=== PATIENT | male | born 1945 | race Caucasian/White ===

== ENCOUNTER 2017-07-25 14:41 | Emergency (ER) | payer MEDICARE ==
[~2017-07-25] VITALS: Ht 180.3 cm; Wt 120.0 kg
[2017-07-25] MEDS ORDERED: METFORMIN500 M2 PO (15:48)
[2017-07-25] MEDS ORDERED: ZYLOPRIM100 MG PO (15:48)
[2017-07-25] MEDS ORDERED: LEVOTHYROXIN50 MCG PO (15:48)
[2017-07-25] MEDS ORDERED: CELEXA20 M1 PO (15:48)
[2017-07-25] MEDS ORDERED: NOVOLIN 70/30 SC (15:49)
[2017-07-25] MEDS ORDERED: ASPIRIN EC325 MG PO (15:50)
[2017-07-25] MEDS ORDERED: HYDROCO/APAP1 TA9 PO (15:50)
[2017-07-25] MEDS ORDERED: PRAMIPEXOLE0.25 MG PO (15:52)
[2017-07-25 16:00] VITALS: BP 155/71
[2017-07-25] MEDS ORDERED: MIRAPEX0.5 MG PO (16:02)
[2017-07-25] MEDS ORDERED: PERCOCET 5/321 COMBO PO (16:02)
== END 2017-07-25 16:15 | disposition home or self-care (01) ==
LOC: ED 14:41
DX: S43.102A Unspecified dislocation of left acromioclavicular joint, initial encounter (principal); S80.212A Abrasion, left knee, initial encounter; G47.30 Sleep apnea, unspecified; E11.9 Type 2 diabetes mellitus without complications; I10 Essential (primary) hypertension; E78.00 Pure hypercholesterolemia, unspecified; E03.9 Hypothyroidism, unspecified; V28.4XXA Motorcycle driver injured in noncollision transport accident in traffic accident, initial encounter

== ENCOUNTER 2017-08-30 20:04 | Observation (INO) | payer OTHER, MEDICARE ==
[~2017-08-30] VITALS: Ht 180.3 cm; Wt 111.4 kg
[~2017-08-30 20:04] MED LIST: ASPIRIN EC325 MG PO; CELEXA20 M1 PO; HYDROCO/APAP1 TA9 PO; LEVOTHYROXIN50 MCG PO; METFORMIN500 M2 PO; MIRAPEX0.5 MG PO; NOVOLIN 70/30 SC; PERCOCET 5/321 COMBO PO; PRAMIPEXOLE0.25 MG PO; ZYLOPRIM100 MG PO
[2017-08-30 20:48] LABS: HEMATOCRIT 38.3 % (39.0-50.0); HEMOGLOBIN 12.6 g/dl (14.0-18.0); IMMATURE GRANULOCYTES 0.3 % (0.0-1.0); MEAN CELL VOLUME 89.9 fL CALC (80.0-100.0); MEAN CORPUSCULAR HGB 29.6 pG CALC (26.0-32.0); MEAN CORPUSCULAR HGB CONC 32.9 g/L CALC (32.0-36.0); NEUT# 6.86 thou/uL (1.82-7.42); RED BLOOD COUNT 4.26 mill/uL (4.70-6.10); RED CELL DISTRI WIDTH 13.4 % (11.5-15.5)
[2017-08-30 21:03] LABS: ANION GAP 21 (6-22 (CALC)); BUN 15 mg/dL (8-23); BUN/CREATININE RATIO 14 (12-20 (CALC)); CARBON DIOXIDE 21 mmol/l (22-30); CHLORIDE 98 mmol/l (95-108); CREATININE 1.1 mg/dL (0.7-1.3); GFR > 60 ML/MIN (>=60 (CALC)); GFR FOR AFR.AMER. > 60 ML/MIN (>=60 (CALC)); POTASSIUM 4.6 mmol/l (3.5-5.1); SODIUM 135 mmol/l (137-146)
[2017-08-30 23:25] VITALS: BP 166/61
[2017-08-31] VITALS (7 sets, daily range): BP systolic 154–199; BP diastolic 72–85
[2017-08-31] MEDS ORDERED: METOPROL TAR25 MG PO (10:48)
[2017-08-31] MEDS ORDERED: ZESTRIL10 M1 PO (10:52)
[2017-08-31] MEDS ORDERED: FINASTERIDE5 MG PO (10:53)
[2017-08-31] MEDS ORDERED: METFORMIN HCL500 M1 PO (10:54)
== END 2017-08-31 16:35 | disposition short-term general hospital (02) | DRG 310 ==
LOC: ED 20:04 → ED-I 22:27 → ED 22:39 → ICU 22:40
PROVIDERS: ADMIT Internal Medicine; ATTEND Internal Medicine
DX: I44.1 Atrioventricular block, second degree (principal); S00.12XA Contusion of left eyelid and periocular area, initial encounter; E11.65 Type 2 diabetes mellitus with hyperglycemia; I10 Essential (primary) hypertension; G47.30 Sleep apnea, unspecified; E03.9 Hypothyroidism, unspecified; E78.00 Pure hypercholesterolemia, unspecified; I25.10 Atherosclerotic heart disease of native coronary artery without angina pectoris; V43.53XA Car driver injured in collision with pick-up truck in traffic accident, initial encounter; Z95.1 Presence of aortocoronary bypass graft; Z91.14 Patient's other noncompliance with medication regimen

== ENCOUNTER 2018-07-07 19:27 | Emergency (ER) | payer MEDICARE ==
[~2018-07-07] VITALS: Ht 180.3 cm; Wt 98.0 kg
[~2018-07-07 19:27] MED LIST changes: +FINASTERIDE5 MG PO; +METFORMIN HCL500 M1 PO; +METOPROL TAR25 MG PO; +ZESTRIL10 M1 PO
[2018-07-07 21:16] LABS: HEMATOCRIT 40.4 % (39.0-50.0); HEMOGLOBIN 13.7 g/dl (14.0-18.0); IMMATURE GRANULOCYTES 0.2 % (0.0-5.0); MEAN CELL VOLUME 88.2 fL CALC (80.0-100.0); MEAN CORPUSCULAR HGB 29.9 pG CALC (26.0-32.0); MEAN CORPUSCULAR HGB CONC 33.9 g/L CALC (32.0-36.0); NEUT# 4.98 thou/uL (1.82-7.42); RED BLOOD COUNT 4.58 mill/uL (4.70-6.10); RED CELL DISTRI WIDTH 13.2 % (11.5-15.5); URINE BILIRUBIN - DIPSTICK NEGATIVE (NEGATIVE); URINE BLOOD DIPSTICK NEGATIVE (NEGATIVE); URINE COLOR YELLOW; URINE GLUCOSE - DIPSTICK >=1000 mg/dL (NEGATIVE); URINE KETONE TRACE mg/dL (NEGATIVE); URINE LEUK ESTERASE NEGATIVE (NEGATIVE); URINE NITRITE - DIPSTICK NEGATIVE (Negative); URINE PH 5.5 (4.5-8.0); URINE PROTEIN - DIPSTICK NEGATIVE (NEG-TRACE); URINE UROBILINOGEN - DIPSTICK 0.2 E.U./dL (0.2)
[2018-07-07 21:36] LABS: ALBUMIN 4.5 g/dL (3.2-5.0); ALKALINE PHOSPHATASE 102 u/l (38-126); ANION GAP 18 (6-22 (CALC)); BILIRUBIN, TOTAL 0.5 mg/dL (0.0-1.4); BUN 21 mg/dL (8-23); BUN/CREATININE RATIO 18 (12-20 (CALC)); CARBON DIOXIDE 24 mmol/l (22-30); CHLORIDE 98 mmol/l (95-108); CREATININE 1.2 mg/dL (0.7-1.3); GFR 60 ML/MIN (>=60 (CALC)); GFR FOR AFR.AMER. > 60 ML/MIN (>=60 (CALC)); POTASSIUM 4.9 mmol/l (3.5-5.1); SGOT/AST 28 u/l (19-48); SODIUM 136 mmol/l (137-146); TOTAL PROTEIN 7.8 g/dL (6.3-8.2)
[2018-07-07 21:47] LABS: MYOGLOBIN 45 ng/mL (0 - 121)
[2018-07-08 00:12] VITALS: BP 161/70
== END 2018-07-08 00:12 | disposition home or self-care (01) ==
LOC: ED 19:27 → ED-I 21:55 → ED 07-08 00:12
PROVIDERS: Emergency Medicine
DX: E11.65 Type 2 diabetes mellitus with hyperglycemia (principal); Z79.4 Long term (current) use of insulin; R94.31 Abnormal electrocardiogram [ECG] [EKG]

== ENCOUNTER 2019-02-16 14:26 | Observation (INO) | payer MEDICARE ==
[~2019-02-16] VITALS: Ht 180.3 cm; Wt 78.7 kg
[~2019-02-16 14:26] MED LIST changes: -ASPIRIN EC325 MG PO; +EC ASPIRIN325 MG PO
--- NOTE | 2019-02-16 14:38 | NUR ---
OBTAINED EKG WHILE IN TRIAGE. NO ROOMS AVAILABLE IN ER. CHARGE NURSE NOTIFIED. WILL PLACE PT IN ROOM 7 AND DRAW BLOOD AND SOON ROOM COMES AVAILABLE WILL MOVE PT TO A MONITERED ROOM, DR. SMALL GIVEN EKG
--- NOTE | 2019-02-16 15:30 | NUR ---
PATIENT RESTING AWAITNG LAB AND RADIOLOGY RESULTS. PATIENT DENIES ANY CHEST PAIN, SOB OR WEAKNESS AT THIS TIME. PATIENT REFUSING TO REMOVE CLOTHING AND GET INTO GOWN
[2019-02-16 15:32] LABS: HEMATOCRIT 44.2 % (39.0-50.0); HEMOGLOBIN 14.5 g/dl (14.0-18.0); IMMATURE GRANULOCYTES 0.4 % (0.0-5.0); MEAN CELL VOLUME 88.9 fL CALC (80.0-100.0); MEAN CORPUSCULAR HGB 29.2 pG CALC (26.0-32.0); MEAN CORPUSCULAR HGB CONC 32.8 g/L CALC (32.0-36.0); NEUT# 7.73 thou/uL (1.82-7.42); RED BLOOD COUNT 4.97 mill/uL (4.70-6.10); RED CELL DISTRI WIDTH 13.4 % (11.5-15.5)
[2019-02-16 15:47] LABS: ALBUMIN 4.8 g/dL (3.2-5.0); ALKALINE PHOSPHATASE 98 u/l (38-126); ANION GAP 21 (6-22 (CALC)); BILIRUBIN, TOTAL 0.6 mg/dL (0.0-1.4); BUN 21 mg/dL (8-23); BUN/CREATININE RATIO 17 (12-20 (CALC)); CARBON DIOXIDE 22 mmol/l (22-30); CHLORIDE 101 mmol/l (95-108); CREATININE 1.2 mg/dL (0.7-1.3); GFR 60 ML/MIN (>=60 (CALC)); GFR FOR AFR.AMER. > 60 ML/MIN (>=60 (CALC)); SGOT/AST 32 u/l (19-48); SODIUM 138 mmol/l (137-146)
--- NOTE | 2019-02-16 16:30 | NUR ---
PATIENT RESTING AWAITING LAB AND RADIOLOGY RESULTS. PATIENT DENIES ANY PAIN OR DISCOMFORT AT THIS TIME. PATIENT SITTING ON SIDE OF BED STATING MORE COMFORTABLE THAN LAYING DOWN
--- NOTE | 2019-02-16 17:30 | NUR ---
PATIENT RESTING AWAITING ROOM ASSIGNMNET PATIENT SITTING ON SIDE OF BED. PATIENT DENIES ANY PAIN, SOB OR WEAKNESS AT THIS TIME
--- NOTE | 2019-02-16 18:25 | NUR ---
FOOD TRAY DELIVERED AND PATIENT CONSUMING MEAL
--- NOTE | 2019-02-16 18:41 | NUR ---
REPORT CALLED TO LARRY CLARKE
--- NOTE | 2019-02-16 18:49 | NUR ---
PATIENT TRANSPORTED TO [facility]
[2019-02-16 19:00] VITALS: BP 133/59
--- NOTE | 2019-02-16 19:53 | NUR ---
PT ARRIVED TO UNIT VIA STRETCHER WITH ER STAFF; ALERT AND ORIENTED X3; TALKATIVE. AMBULATED TO BED INDEPENDENLTY WITH STEADY GAIT. DENIES PAIN; REPORTS A HEAVINESS IN HIS CHEST WITH ASSOCIATED OCCASIONAL SOB. RESPIRATIONS EVEN AND UNLABORED AT THIS TIME ON ROOM AIR; WEARS A CPAP AT BEDTIME. PLAN OF CARE DISCUSSED. PT ENCOURAGED TO VERBALIZE CONCERNS. STATES UNDERSTANDING. SAFETY MEASURES IN PLACE. CALL LIGHT WITHIN REACH.
--- NOTE | 2019-02-16 20:06 | NUR ---
ASSESSMENT COMPLETED; HR IRREGULAR. PT HAD PACEMAKER PLACED IN NOVEMBER. TONY CURTIS APPLIED TO BLE. VSS.
--- NOTE | 2019-02-16 22:22 | NUR ---
HS INSULIN GIVEN; PT PREFERS TO INJECT HIMSELF; NEEDS DISPOSED OF IN SHARPS CONTAINER. HS SNACK PROVIDED.
[2019-02-16 23:32] VITALS: BP 137/88
--- NOTE | 2019-02-16 23:36 | NUR ---
PT TRANSPORTED TO [facility] VIS WHEELCHAIR WITH ICU STAFF FOR SHOWER. PT NOW BACK IN BED ALL ATTACHMENTS RECONNECTED. VSS. PT REMAINS VERY TALKATIVE AND PLAYING GAMES ON HIS CELL PHONE. PT STATES THAT HE IS STILL HUNGRY; STEVEN PEPE PROVIDED. 3 UNIT GIVEN FOR GLUCOSE OF 272. PACED ON TELEMETRY WITH OCCATISIONAL PVCS.
[2019-02-17 04:31] VITALS: BP 140/64
--- NOTE | 2019-02-17 04:34 | NUR ---
PT ASLEEP ON LEFT SIDE WITH NO SIGNS OF DISTRESS; AWAKENS TO VERBAL STIMULI. DENIES CHEST PAIN, BUT DOES C/O SOME MILD SOB; GOOD OXYGEN SATURATION ON ROOM AIR. VOIDING CLEAR YELLOW URINE IN URINAL. SAFETY MEASURES IN PLACE. CALL LIGHT WITHIN REACH.
--- NOTE | 2019-02-17 04:52 | NUR ---
PT EXPERIENCED A RUN OF VTACH FOR APPROXIMATELY 20 SECONDS; PT RESTING ON RIGHT SIDE AND ASYMPTOMATIC BUT FOR THE SAME C/O OF MILD HEAVINESS IN CHEST AND MILD SOB. CURRENTLY IN TRIGEMINY WITH BUNDLE BRANCH BLOCK.
[2019-02-17 06:28] LABS: CHOLESTEROL HDL RATIO 4.8 (<4.4 (CALC))
--- NOTE | 2019-02-17 07:20 | NUR ---
PT RESTING IN BED AWAKE AND WATCHING TV. PT IS ALERT AND ORIENTED X 3. SHIFT ASSESSMENT COMPLETED AT THIS TIME. IV PATENT X1. CALL LIGHT IN REACH. [facility]
--- NOTE | 2019-02-17 07:30 | NUR ---
PT SET UP FOR AM MEAL
--- NOTE | 2019-02-17 08:50 | NUR ---
DR BLANTON AT BEDSIDE AT THIS TIME
[2019-02-17 10:35] VITALS: BP 118/78
--- NOTE | 2019-02-17 11:30 | NUR ---
PT SET UP FOR NOON MEAL AT THIS TIME.
[2019-02-17] MEDS ORDERED: PRAVACHOL40 MG PO (11:50)
--- NOTE | 2019-02-17 11:50 | NUR ---
ANTONIO GREENE AT BEDSIDE AT THIS TIME
[2019-02-17] MEDS ORDERED: OXYBUTYNIN CHLO10 MG PO (11:51)
[2019-02-17] MEDS ORDERED: PRAMIPEXOLE D0.25 MG PO (11:53)
[2019-02-17 12:00] VITALS: BP 151/71
--- NOTE | 2019-02-17 12:30 | NUR ---
PT RESTING IN BED WATCHING TV. RESP ARE EVEN AND UNLABORED. NO DISTRESS NOTED. CALL LIGHT IN REACH. WILL CONTINEU TO MONITOR.
[2019-02-17] MEDS ORDERED: LEVOTHYROXIN75 MC1 PO (13:39)
[2019-02-17] MEDS ORDERED: ISOSORB MONO30 MG PO (13:39)
--- NOTE | 2019-02-17 14:20 | NUR ---
PACEMAKER INTERROGATED AT THIS TIME
--- NOTE | 2019-02-17 15:54 | NUR ---
IV site discontinued, cath intact. No edema , no redness, voices no discomfort.
--- NOTE | 2019-02-17 16:00 | NUR ---
DISCHARGE INSTRUCTIONS REVIEWED WITH PATIENT. PATIENT VERBLAIZED UNDERSTANDING.
--- NOTE | 2019-02-17 16:10 | NUR ---
Discharge instructions given. Patient verbalizes understanding of same. Discharged in stable condition via Wheelchair to Home with staff. All belongings sent with pt.
== END 2019-02-17 16:10 | disposition home or self-care (01) ==
LOC: ED 14:26 → ED-I 16:21 → ED 16:55 → ED-I 16:55 → ED 17:07 → ICU 17:08
PROVIDERS: Family Medicine; ADMIT Internal Medicine; ATTEND Internal Medicine
DX: I25.119 Atherosclerotic heart disease of native coronary artery with unspecified angina pectoris (principal); R00.8 Other abnormalities of heart beat; I10 Essential (primary) hypertension; E03.9 Hypothyroidism, unspecified; G47.33 Obstructive sleep apnea (adult) (pediatric); E11.40 Type 2 diabetes mellitus with diabetic neuropathy, unspecified; E78.5 Hyperlipidemia, unspecified; Z87.891 Personal history of nicotine dependence; Z95.1 Presence of aortocoronary bypass graft; Z95.0 Presence of cardiac pacemaker; Z79.4 Long term (current) use of insulin

== ENCOUNTER 2019-07-11 | Emergency (ER) | payer MEDICARE ==
[~2019-07-11] MED LIST changes: +ISOSORB MONO30 MG PO; +LEVOTHYROXIN75 MC1 PO; +OXYBUTYNIN CHLO10 MG PO; +PRAMIPEXOLE D0.25 MG PO; +PRAVACHOL40 MG PO
[2019-07-11] MEDS ORDERED: CYCLOBENZAPR5 MG PO ×2 (10:54→11:26)
== END 2019-07-11 11:31 | disposition home or self-care (01) ==
DX: S39.012A Strain of muscle, fascia and tendon of lower back, initial encounter (principal); I10 Essential (primary) hypertension; E11.9 Type 2 diabetes mellitus without complications; E03.9 Hypothyroidism, unspecified; Z95.1 Presence of aortocoronary bypass graft; Z95.0 Presence of cardiac pacemaker; Z79.4 Long term (current) use of insulin; M54.5 Low back pain; M79.605 Pain in left leg; X58.XXXA Exposure to other specified factors, initial encounter

== ENCOUNTER 2019-07-11 18:46 | Emergency (ER) | payer MEDICARE ==
[~2019-07-11 18:46] MED LIST changes: +CYCLOBENZAPR5 MG PO
[2019-07-11 20:18] VITALS: BP 191/80
== END 2019-07-11 20:17 | disposition home or self-care (01) ==
LOC: ED 18:46
DX: M54.5 Low back pain (principal); M79.605 Pain in left leg; I10 Essential (primary) hypertension; E11.9 Type 2 diabetes mellitus without complications; E03.9 Hypothyroidism, unspecified; Z95.1 Presence of aortocoronary bypass graft; Z95.0 Presence of cardiac pacemaker; Z79.4 Long term (current) use of insulin

== ENCOUNTER 2019-08-07 | Emergency (ER) | payer MEDICARE ==
[2019-08-07 15:49] LABS: HEMOGLOBIN 13.5 g/dl (14.0-18.0); IMMATURE GRANULOCYTES 0.3 % (0.0-5.0); MEAN CELL VOLUME 89.6 fL CALC (80.0-100.0); MEAN CORPUSCULAR HGB 28.8 pG CALC (26.0-32.0); MEAN CORPUSCULAR HGB CONC 32.1 g/dL CAL (32.0-36.0); NEUT# 6.15 thou/uL (1.82-7.42); RED BLOOD COUNT 4.69 mill/uL (4.70-6.10); RED CELL DISTRI WIDTH 13.6 % (11.5-15.5)
[2019-08-07 16:16] LABS: ALBUMIN 4.1 g/dL (3.2-5.0); ALKALINE PHOSPHATASE 85 u/l (38-126); ANION GAP 13 (6-22 (CALC)); BILIRUBIN, TOTAL 0.5 mg/dL (0.0-1.4); BUN 19 mg/dL (8-23); BUN/CREATININE RATIO 19 (12-20 (CALC)); CHLORIDE 103 mmol/l (95-108); GFR > 60 ML/MIN (>=60 (CALC)); GFR FOR AFR.AMER. > 60 ML/MIN (>=60 (CALC)); POTASSIUM 4.2 mmol/l (3.5-5.1); SGOT/AST 19 u/l (19-48); SODIUM 139 mmol/l (137-146); TOTAL PROTEIN 7.1 g/dL (6.3-8.2)
[2019-08-07 16:18] LABS: CARBON DIOXIDE 27 mmol/l (22-30)
[2019-08-07 16:28] LABS: MYOGLOBIN 163 ng/mL (0 - 121)
[2019-08-07 17:55] LABS: URINE BILIRUBIN - DIPSTICK NEGATIVE (NEGATIVE); URINE BLOOD DIPSTICK NEGATIVE (NEGATIVE); URINE COLOR YELLOW; URINE GLUCOSE - DIPSTICK >=1000 mg/dL (NEGATIVE); URINE KETONE 15 mg/dL (NEGATIVE); URINE LEUK ESTERASE NEGATIVE (NEGATIVE); URINE NITRITE - DIPSTICK NEGATIVE (Negative); URINE PH 5.5 (4.5-8.0); URINE PROTEIN - DIPSTICK NEGATIVE (NEG-TRACE)
[2019-08-07 18:01] LABS: BARBITURATES NEGATIVE (NEGATIVE); COCAINE NEGATIVE (NEGATIVE); METHADONE NEGATIVE (NEGATIVE); OXCYCODONE NEGATIVE (NEGATIVE); TETRAHYDROCANNABIONOL NEGATIVE (NEGATIVE); TRICYLIC ANTIDEPRESSANTS NEGATIVE (NEGATIVE)
[2019-08-07] MEDS ORDERED: FLEXERIL PO (18:19)
[2019-08-07] MEDS ORDERED: ULTRAM50 M1 PO (18:19)
== END 2019-08-07 19:28 | disposition home or self-care (01) ==
PROVIDERS: Emergency Medicine
DX: S73.102A Unspecified sprain of left hip, initial encounter (principal); M47.816 Spondylosis without myelopathy or radiculopathy, lumbar region; E11.40 Type 2 diabetes mellitus with diabetic neuropathy, unspecified; I10 Essential (primary) hypertension; E03.9 Hypothyroidism, unspecified; X58.XXXA Exposure to other specified factors, initial encounter; Z79.84 Long term (current) use of oral hypoglycemic drugs; Z95.1 Presence of aortocoronary bypass graft; Z95.0 Presence of cardiac pacemaker

== ENCOUNTER 2021-07-30 14:34 | Emergency (ER) | payer MEDICARE ==
[2021-07-30] VITALS (8 sets, daily range): BP systolic 148–179; BP diastolic 64–99
[~2021-07-30] VITALS: Ht 180.3 cm; Wt 90.9 kg
[~2021-07-30 14:34] MED LIST changes: +FLEXERIL PO; +ULTRAM50 M1 PO
[2021-07-30] MEDS ORDERED: TAMSULOSIN0.4 MG PO (16:44)
[2021-07-30] MEDS ORDERED: MULTI VIT PO (16:44)
[2021-07-30] MEDS ORDERED: LEVOTHYROXIN50 MCG PO (16:46)
[2021-07-30] MEDS ORDERED: CYMBALTA60 MG PO (16:46)
[2021-07-30] MEDS ORDERED: CIALIS20 MG PO (16:46)
[2021-07-30] MEDS ORDERED: ISOSORB MONO30 MG PO (16:47)
[2021-07-30] MEDS ORDERED: TORADOL PO (20:10)
== END 2021-07-30 20:15 | disposition home or self-care (01) ==
LOC: ED 14:34
DX: M47.816 Spondylosis without myelopathy or radiculopathy, lumbar region (principal); M25.551 Pain in right hip; I10 Essential (primary) hypertension; E11.9 Type 2 diabetes mellitus without complications; E78.00 Pure hypercholesterolemia, unspecified; E03.9 Hypothyroidism, unspecified; G47.30 Sleep apnea, unspecified; Z95.0 Presence of cardiac pacemaker; Z95.1 Presence of aortocoronary bypass graft; Z79.84 Long term (current) use of oral hypoglycemic drugs; Z79.4 Long term (current) use of insulin

== ENCOUNTER 2022-02-09 13:44 | Emergency (ER) | payer MEDICARE ==
[~2022-02-09] VITALS: Ht 180.3 cm; Wt 100.0 kg
[2022-02-09] VITALS (9 sets, daily range): BP systolic 134–178; BP diastolic 64–92
[~2022-02-09 13:44] MED LIST changes: +CIALIS20 MG PO; +CYMBALTA60 MG PO; +MULTI VIT PO; +TAMSULOSIN0.4 MG PO; +TORADOL PO
[2022-02-09 14:15] LABS: HEMATOCRIT 38.2 % (39.0-50.0); HEMOGLOBIN 12.6 g/dl (14.0-18.0); IMMATURE GRANULOCYTES 0.2 % (0.0-5.0); MEAN CELL VOLUME 89.7 fL CALC (80.0-100.0); MEAN CORPUSCULAR HGB 29.6 pG CALC (26.0-32.0); NEUT# 7.45 thou/uL (1.82-7.42); RED BLOOD COUNT 4.26 mill/uL (4.70-6.10); RED CELL DISTRI WIDTH 12.9 % (11.5-15.5)
[2022-02-09 14:35] LABS: ALKALINE PHOSPHATASE 91 u/l (38-126); ANION GAP 18 (6-22 (CALC)); BILIRUBIN, TOTAL 0.4 mg/dL (0.0-1.4); BUN 18 mg/dL (8-23); BUN/CREATININE RATIO 19 (12-20 (CALC)); CHLORIDE 102 mmol/l (95-108); CREATININE 0.9 mg/dL (0.7-1.3); GFR FOR AFR.AMER. > 60 ML/MIN (>=60 (CALC)); GFR OTHER RACES > 60 ML/MIN (>=60 (CALC)); POTASSIUM 4.7 mmol/l (3.5-5.1); SGOT/AST 22 u/l (19-48); SODIUM 136 mmol/l (137-146); TOTAL PROTEIN 7.3 g/dL (6.3-8.2)
[2022-02-09 14:36] LABS: CARBON DIOXIDE 21 mmol/l (22-30)
== END 2022-02-09 16:14 | disposition left against medical advice (07) ==
LOC: ED 13:44
PROVIDERS: Family Medicine
DX: R07.9 Chest pain, unspecified (principal); E11.9 Type 2 diabetes mellitus without complications; I10 Essential (primary) hypertension; E03.9 Hypothyroidism, unspecified; E78.00 Pure hypercholesterolemia, unspecified; Z95.1 Presence of aortocoronary bypass graft; Z95.0 Presence of cardiac pacemaker; Z79.84 Long term (current) use of oral hypoglycemic drugs; Z53.29 Procedure and treatment not carried out because of patient's decision for other reasons

== ENCOUNTER 2022-08-28 13:38 | Observation (INO) | payer MEDICARE ==
[2022-08-28] VITALS (28 sets, daily range): BP systolic 76–199; BP diastolic 44–97
[~2022-08-28] VITALS: Ht 180.3 cm; Wt 99.0 kg
[2022-08-28 14:17] LABS: BASO% 0.6 % (0-3); HEMOGLOBIN 14.2 g/dl (14.0-18.0); IMMATURE GRANULOCYTES 0.4 % (0.0-5.0); LYMPH% 13.6 % (15-41); MEAN CELL VOLUME 92.3 fL CALC (80.0-100.0); MEAN CORPUSCULAR HGB 28.7 pG CALC (26.0-32.0); MEAN CORPUSCULAR HGB CONC 31.1 g/dL CAL (32.0-36.0); MONO% 5.4 % (2-13); NEUT# 8.26 thou/uL (1.82-7.42); RED BLOOD COUNT 4.94 mill/uL (4.70-6.10); RED CELL DISTRI WIDTH 13.9 % (11.5-15.5)
[2022-08-28 14:18] LABS: HEMATOCRIT 45.6 % (39.0-50.0)
[2022-08-28 14:35] LABS: PROTHROMBIN TIME 10.4 SECONDS (9.0-12.5)
[2022-08-28 14:37] LABS: ALBUMIN 4.4 g/dL (3.2-5.0); ALKALINE PHOSPHATASE 111 u/l (38-126); ANION GAP 19 (6-22 (CALC)); BILIRUBIN, TOTAL 0.5 mg/dL (0.2-1.3); BUN 19 mg/dL (8-23); BUN/CREATININE RATIO 18 (12-20 (CALC)); CARBON DIOXIDE 23 mmol/l (22-30); CHLORIDE 98 mmol/l (95-108); CREATININE 1.1 mg/dL (0.7-1.3); GFR FOR AFR.AMER. > 60 ML/MIN (>=60 (CALC)); GFR OTHER RACES > 60 ML/MIN (>=60 (CALC)); SGOT/AST 29 u/l (19-48); SODIUM 134 mmol/l (137-146)
[2022-08-29 00:29] VITALS: BP 99/63
[2022-08-29 04:03] VITALS: BP 147/72
[2022-08-29 06:37] LABS: BASO% 0.6 % (0-3); EOS% 6.2 % (0-8); HEMATOCRIT 43.4 % (39.0-50.0); HEMOGLOBIN 13.5 g/dl (14.0-18.0); IMMATURE GRANULOCYTES 0.5 % (0.0-5.0); LYMPH% 30.1 % (15-41); MEAN CELL VOLUME 92.7 fL CALC (80.0-100.0); MEAN CORPUSCULAR HGB 28.8 pG CALC (26.0-32.0); MEAN CORPUSCULAR HGB CONC 31.1 g/dL CAL (32.0-36.0); MONO% 7.1 % (2-13); NEUT# 4.7 thou/uL (1.82-7.42); NEUT% 55.5 % (42-76); RED BLOOD COUNT 4.68 mill/uL (4.70-6.10); RED CELL DISTRI WIDTH 13.8 % (11.5-15.5)
[2022-08-29 06:49] LABS: ALBUMIN 4.3 g/dL (3.2-5.0); ALKALINE PHOSPHATASE 89 u/l (38-126); ANION GAP 16 (6-22 (CALC)); BILIRUBIN, TOTAL 0.3 mg/dL (0.2-1.3); BUN 24 mg/dL (8-23); BUN/CREATININE RATIO 21 (12-20 (CALC)); CARBON DIOXIDE 27 mmol/l (22-30); CHLORIDE 101 mmol/l (95-108); CREATININE 1.1 mg/dL (0.7-1.3); GFR FOR AFR.AMER. > 60 ML/MIN (>=60 (CALC)); GFR OTHER RACES > 60 ML/MIN (>=60 (CALC)); SGOT/AST 23 u/l (19-48); SODIUM 140 mmol/l (137-146); TOTAL PROTEIN 7.7 g/dL (6.3-8.2)
[2022-08-29 06:51] LABS: POTASSIUM 3.7 mmol/l (3.5-5.1)
[2022-08-29 06:57] VITALS: BP 137/56
[2022-08-29 10:32] VITALS: BP 116/49
[2022-08-29 15:42] VITALS: BP 106/52
[2022-08-29 18:57] VITALS: BP 112/66
[2022-08-30 05:02] VITALS: BP 127/72
[2022-08-30 05:51] LABS: HEMATOCRIT 44.1 % (39.0-50.0); HEMOGLOBIN 14.2 g/dl (14.0-18.0); MEAN CELL VOLUME 90.4 fL CALC (80.0-100.0); MEAN CORPUSCULAR HGB 29.1 pG CALC (26.0-32.0); MEAN CORPUSCULAR HGB CONC 32.2 g/dL CAL (32.0-36.0); RED BLOOD COUNT 4.88 mill/uL (4.70-6.10); RED CELL DISTRI WIDTH 13.7 % (11.5-15.5)
[2022-08-30 06:21] LABS: ALBUMIN 4.2 g/dL (3.2-5.0); ALKALINE PHOSPHATASE 97 u/l (38-126); ANION GAP 12 (6-22 (CALC)); BILIRUBIN, TOTAL 0.3 mg/dL (0.2-1.3); BUN 25 mg/dL (8-23); BUN/CREATININE RATIO 24 (12-20 (CALC)); CARBON DIOXIDE 26 mmol/l (22-30); CHLORIDE 101 mmol/l (95-108); GFR FOR AFR.AMER. > 60 ML/MIN (>=60 (CALC)); GFR OTHER RACES > 60 ML/MIN (>=60 (CALC)); MAGNESIUM 1.8 mg/dL (1.6-2.3); POTASSIUM 4.1 mmol/l (3.5-5.1); SGOT/AST 30 u/l (19-48); SODIUM 135 mmol/l (137-146); TOTAL PROTEIN 7.7 g/dL (6.3-8.2)
[2022-08-30 07:44] VITALS: BP 124/68
[2022-08-30 08:08] VITALS: BP 124/68
[2022-08-30] MEDS ORDERED: LOPID600 MG PO (09:23)
[2022-08-30] MEDS ORDERED: VIBRAMYCIN100 M2 PO (10:15)
[2022-08-30] MEDS ORDERED: LASIX 20 MG TAB20 MG PO (10:15)
== END 2022-08-30 13:22 ==
LOC: ED 13:38 → MS2 19:24
PROVIDERS: Family Medicine; Internal Medicine; ADMIT Internal Medicine; ATTEND Internal Medicine
DX: R06.02 Shortness of breath (principal); R05.9 Cough, unspecified; R53.83 Other fatigue; I10 Essential (primary) hypertension; E11.40 Type 2 diabetes mellitus with diabetic neuropathy, unspecified; I25.10 Atherosclerotic heart disease of native coronary artery without angina pectoris; J44.9 Chronic obstructive pulmonary disease, unspecified; E78.00 Pure hypercholesterolemia, unspecified; E03.9 Hypothyroidism, unspecified; G47.30 Sleep apnea, unspecified; N40.0 Benign prostatic hyperplasia without lower urinary tract symptoms; Z95.1 Presence of aortocoronary bypass graft; Z95.0 Presence of cardiac pacemaker; Z79.84 Long term (current) use of oral hypoglycemic drugs; Z79.4 Long term (current) use of insulin; Z87.891 Personal history of nicotine dependence; Z91.14 Patient's other noncompliance with medication regimen

== ENCOUNTER 2022-10-20 16:31 | Emergency (ER) | payer MEDICARE ==
[~2022-10-20] VITALS: Ht 180.3 cm; Wt 109.8 kg
[2022-10-20] VITALS (10 sets, daily range): BP systolic 131–151; BP diastolic 61–80
[~2022-10-20 16:31] MED LIST changes: +LASIX 20 MG TAB20 MG PO; +LOPID600 MG PO; +VIBRAMYCIN100 M2 PO
[2022-10-20] MEDS ORDERED: GABAPENTIN300 M2 (17:18)
[2022-10-20] MEDS ORDERED: ASPIRINCHW 81MG PO (17:19)
[2022-10-20] MEDS ORDERED: METFORMIN500 M2 PO (17:19)
[2022-10-20] MEDS ORDERED: JARDIANCE10 MG (17:20)
[2022-10-20] MEDS ORDERED: DOXYCYCLINE HY100 MG PO (17:20)
[2022-10-20 17:29] LABS: BASO% 0.4 % (0-3); EOS% 10.6 % (0-8); HEMOGLOBIN 12.5 g/dl (14.0-18.0); IMMATURE GRANULOCYTES 0.5 % (0.0-5.0); LYMPH% 20.1 % (15-41); MEAN CORPUSCULAR HGB 29.1 pG CALC (26.0-32.0); MEAN CORPUSCULAR HGB CONC 31.3 g/dL CAL (32.0-36.0); NEUT# 5.97 thou/uL (1.82-7.42); NEUT% 62.4 % (42-76); RED BLOOD COUNT 4.3 mill/uL (4.70-6.10); RED CELL DISTRI WIDTH 14.2 % (11.5-15.5)
[2022-10-20 17:50] LABS: ALBUMIN 4.1 g/dL (3.2-5.0); ALKALINE PHOSPHATASE 86 u/l (38-126); ANION GAP 15 (6-22 (CALC)); BILIRUBIN, TOTAL 0.3 mg/dL (0.2-1.3); BUN 25 mg/dL (8-23); BUN/CREATININE RATIO 18 (12-20 (CALC)); CARBON DIOXIDE 25 mmol/l (22-30); CHLORIDE 103 mmol/l (95-108); CREATININE 1.4 mg/dL (0.7-1.3); GFR FOR AFR.AMER. 60 ML/MIN (>=60 (CALC)); GFR OTHER RACES 49 ML/MIN (>=60 (CALC)); POTASSIUM 4.6 mmol/l (3.5-5.1); SGOT/AST 26 u/l (19-48); SODIUM 139 mmol/l (137-146); TOTAL PROTEIN 7.6 g/dL (6.3-8.2)
[2022-10-20] MEDS ORDERED: LASIX20 MG PO (20:02)
[2022-10-20] MEDS ORDERED: VIBRAMYCIN100 M2 PO (20:02)
== END 2022-10-20 21:05 | disposition home or self-care (01) ==
LOC: ED 16:31
PROVIDERS: Family Medicine
DX: J18.9 Pneumonia, unspecified organism (principal); I10 Essential (primary) hypertension; E11.9 Type 2 diabetes mellitus without complications; E78.00 Pure hypercholesterolemia, unspecified; E03.9 Hypothyroidism, unspecified; Z95.1 Presence of aortocoronary bypass graft; Z95.0 Presence of cardiac pacemaker; Z79.84 Long term (current) use of oral hypoglycemic drugs; Z20.822 Contact with and (suspected) exposure to COVID-19; R06.02 Shortness of breath

== ENCOUNTER 2022-12-11 21:14 | Observation (INO) | payer MEDICARE ==
[~2022-12-11] VITALS: Ht 180.3 cm; Wt 112.8 kg
[~2022-12-11 21:14] MED LIST changes: +ASPIRINCHW 81MG PO; +DOXYCYCLINE HY100 MG PO; +GABAPENTIN300 M2; +JARDIANCE10 MG; +LASIX20 MG PO
[2022-12-11] MEDS ORDERED: GABAPENTIN300 M2 PO (22:14)
[2022-12-11] MEDS ORDERED: FENOFIBRATE160 MG PO (22:15)
[2022-12-11] MEDS ORDERED: SUPHEDRIN PO (22:19)
[2022-12-11] MEDS ORDERED: VITAMIN B-121000 MCG PO (22:20)
[2022-12-11] MEDS ORDERED: [UNRECOGNIZED DRUG - OTHER] (22:21)
[2022-12-11] MEDS ORDERED: TOUJEO MAX300 UNIT/M SC (22:22)
[2022-12-11] MEDS ORDERED: INSULIN LI100 UNIT/1 SC (22:24)
[2022-12-11] MEDS ORDERED: NOVOLIN 70/30 SC (22:25)
[2022-12-11 22:31] VITALS: BP 162/80
[2022-12-11 22:54] LABS: BASO% 0.8 % (0-3); HEMATOCRIT 42.1 % (39.0-50.0); HEMOGLOBIN 13.1 g/dl (14.0-18.0); IMMATURE GRANULOCYTES 0.4 % (0.0-5.0); LYMPH% 18.1 % (15-41); MEAN CELL VOLUME 90.3 fL CALC (80.0-100.0); MEAN CORPUSCULAR HGB 28.1 pG CALC (26.0-32.0); MEAN CORPUSCULAR HGB CONC 31.1 g/dL CAL (32.0-36.0); MONO% 4.9 % (2-13); NEUT# 6.21 thou/uL (1.82-7.42); NEUT% 67.8 % (42-76); RED BLOOD COUNT 4.66 mill/uL (4.70-6.10); RED CELL DISTRI WIDTH 14.8 % (11.5-15.5)
[2022-12-11 23:00] VITALS: BP 144/79
[2022-12-11 23:07] LABS: ALBUMIN 4.1 g/dL (3.2-5.0); CREATININE 1.7 mg/dL (0.7-1.3); POTASSIUM 4.4 mmol/l (3.5-5.1); TOTAL PROTEIN 7.9 g/dL (6.3-8.2)
[2022-12-11 23:08] LABS: BILIRUBIN, TOTAL 0.7 mg/dL (0.2-1.3)
[2022-12-11 23:09] LABS: INTERNATIONAL NORMALIZED RATIO 1.1 RATIO (0.7-1.3); PROTHROMBIN TIME 10.9 SECONDS (9.0-12.5)
[2022-12-11 23:30] VITALS: BP 149/78
[2022-12-12] VITALS (11 sets, daily range): BP systolic 116–147; BP diastolic 63–86
[2022-12-12 08:43] LABS: BASO% 0.5 % (0-3); EOS% 11.6 % (0-8); HEMATOCRIT 42.7 % (39.0-50.0); HEMOGLOBIN 13.2 g/dl (14.0-18.0); IMMATURE GRANULOCYTES 0.2 % (0.0-5.0); LYMPH% 24.9 % (15-41); MEAN CELL VOLUME 90.5 fL CALC (80.0-100.0); MEAN CORPUSCULAR HGB CONC 30.9 g/dL CAL (32.0-36.0); MONO% 6.3 % (2-13); NEUT# 4.8 thou/uL (1.82-7.42); NEUT% 56.5 % (42-76); RED BLOOD COUNT 4.72 mill/uL (4.70-6.10); RED CELL DISTRI WIDTH 14.9 % (11.5-15.5)
[2022-12-12 08:53] LABS: ALBUMIN 3.9 g/dL (3.2-5.0); BILIRUBIN, TOTAL 0.5 mg/dL (0.2-1.3); CREATININE 1.7 mg/dL (0.7-1.3); POTASSIUM 4.4 mmol/l (3.5-5.1); TOTAL PROTEIN 7.5 g/dL (6.3-8.2)
[2022-12-13] VITALS (7 sets, daily range): BP systolic 105–140; BP diastolic 64–83
[2022-12-13 05:45] LABS: CHOLESTEROL HDL RATIO 4.5 (<4.4 (CALC)); CREATININE 1.8 mg/dL (0.7-1.3); MAGNESIUM 2.2 mg/dL (1.6-2.3); POTASSIUM 4.7 mmol/l (3.5-5.1)
[2022-12-13 05:50] LABS: HEMATOCRIT 44.1 % (39.0-50.0); HEMOGLOBIN 13.9 g/dl (14.0-18.0); MEAN CELL VOLUME 90.4 fL CALC (80.0-100.0); MEAN CORPUSCULAR HGB 28.5 pG CALC (26.0-32.0); MEAN CORPUSCULAR HGB CONC 31.5 g/dL CAL (32.0-36.0); RED BLOOD COUNT 4.88 mill/uL (4.70-6.10); RED CELL DISTRI WIDTH 14.5 % (11.5-15.5)
[2022-12-14] VITALS (11 sets, daily range): BP systolic 103–124; BP diastolic 57–77
[2022-12-14 05:14] LABS: BASO% 0.6 % (0-3); EOS% 9.9 % (0-8); HEMATOCRIT 45.2 % (39.0-50.0); HEMOGLOBIN 14.4 g/dl (14.0-18.0); IMMATURE GRANULOCYTES 0.2 % (0.0-5.0); LYMPH% 21.3 % (15-41); MEAN CORPUSCULAR HGB 28.7 pG CALC (26.0-32.0); MEAN CORPUSCULAR HGB CONC 31.9 g/dL CAL (32.0-36.0); MONO% 5.3 % (2-13); NEUT# 6.21 thou/uL (1.82-7.42); NEUT% 62.7 % (42-76); RED BLOOD COUNT 5.02 mill/uL (4.70-6.10); RED CELL DISTRI WIDTH 14.4 % (11.5-15.5)
[2022-12-14 05:25] LABS: ALBUMIN 4.4 g/dL (3.2-5.0); CREATININE 1.7 mg/dL (0.7-1.3); MAGNESIUM 2.3 mg/dL (1.6-2.3); POTASSIUM 4.6 mmol/l (3.5-5.1); TOTAL PROTEIN 8.3 g/dL (6.3-8.2)
[2022-12-14 05:27] LABS: BILIRUBIN, TOTAL 0.8 mg/dL (0.2-1.3)
[2022-12-14 07:30] LABS: URINE BILIRUBIN - DIPSTICK Negative (NEGATIVE); URINE BLOOD DIPSTICK Moderate (NEGATIVE); URINE COLOR Yellow; URINE GLUCOSE - DIPSTICK >=1000 mg/dL (NEGATIVE); URINE KETONE Negative (NEGATIVE); URINE NITRITE - DIPSTICK Negative (Negative); URINE PH 5.5 (4.5-8.0); URINE PROTEIN - DIPSTICK 30 mg/dL (NEG-TRACE); URINE SPECIFIC GRAVITY 1.015; URINE UROBILINOGEN - DIPSTICK 0.2 E.U./dL (0.2)
[2022-12-14 07:31] LABS: URINE LEUK ESTERASE Small (NEGATIVE)
[2022-12-14 07:45] LABS: URINE WBC 20-50 WBC/hpf (0-5)
[2022-12-14 07:46] LABS: URINE BACTERIA MODERATE hpf
[2022-12-15 03:30] VITALS: BP 96/58
[2022-12-15 05:16] LABS: HEMOGLOBIN 14.6 g/dl (14.0-18.0); MEAN CELL VOLUME 91.6 fL CALC (80.0-100.0); MEAN CORPUSCULAR HGB 29.1 pG CALC (26.0-32.0); MEAN CORPUSCULAR HGB CONC 31.7 g/dL CAL (32.0-36.0); RED BLOOD COUNT 5.02 mill/uL (4.70-6.10); RED CELL DISTRI WIDTH 14.4 % (11.5-15.5)
[2022-12-15 05:21] VITALS: BP 96/58
[2022-12-15 05:33] LABS: ALBUMIN 4.5 g/dL (3.2-5.0); BILIRUBIN, TOTAL 0.7 mg/dL (0.2-1.3); CREATININE 2.1 mg/dL (0.7-1.3); MAGNESIUM 2.6 mg/dL (1.6-2.3); POTASSIUM 4.4 mmol/l (3.5-5.1); TOTAL PROTEIN 9.3 g/dL (6.3-8.2)
[2022-12-15 07:05] VITALS: BP 116/61
[2022-12-15 10:46] VITALS: BP 101/57
[2022-12-15 14:44] LABS: CREATININE 2.1 mg/dL (0.7-1.3); POTASSIUM 4.9 mmol/l (3.5-5.1)
[2022-12-15] MEDS ORDERED: CIPROFLOXACN500 MG PO (15:22)
== END 2022-12-15 15:51 | disposition home health service (06) ==
LOC: ED 21:14 → ED-I 21:56 → ED 12-12 00:08 → MS2 12-12 00:09
PROVIDERS: Emergency Medicine; Nurse Practitioner Family; ADMIT Student in an Organized Health Care Education/Training Program; ATTEND Student in an Organized Health Care Education/Training Program
DX: I11.0 Hypertensive heart disease with heart failure (principal); I50.9 Heart failure, unspecified; N17.9 Acute kidney failure, unspecified; E11.65 Type 2 diabetes mellitus with hyperglycemia; N39.0 Urinary tract infection, site not specified; I25.10 Atherosclerotic heart disease of native coronary artery without angina pectoris; E11.40 Type 2 diabetes mellitus with diabetic neuropathy, unspecified; G47.33 Obstructive sleep apnea (adult) (pediatric); E78.00 Pure hypercholesterolemia, unspecified; E03.9 Hypothyroidism, unspecified; Z95.0 Presence of cardiac pacemaker; Z79.84 Long term (current) use of oral hypoglycemic drugs; Z88.0 Allergy status to penicillin; Z99.81 Dependence on supplemental oxygen; Z79.4 Long term (current) use of insulin; Z20.822 Contact with and (suspected) exposure to COVID-19